=== PATIENT | male | born 1995 | race Two or more races ===

== ENCOUNTER 2016-08-10 23:29 | Emergency (ER) | payer SELFPAY ==
[2016-08-11] MEDS ORDERED: METOCLOPRAMIDE HCL ORAL SOLN 10 MG/10 ML UDCUP PO ONE (01:50)
[2016-08-11] MEDS ORDERED: LIDOCAINE 2% VISCOUS SOLN 20 ML UDCUP PO ONE (01:50)
[2016-08-11] MEDS ORDERED: MAG HYDROX/AL HYDROX/SIMETH SUSP 30 ML UDCUP PO ONE (01:50)
--- NOTE | 2016-08-11 02:10 | ER Document Report ---
ED General - General Chief Complaint: Chest Pain Stated Complaint: DISCOMFORT IN CHEST Time seen by provider: 01:50 Notes: Patient is a 21-year-old male that comes emergency department for chief complaint of pain in his lower chest and upper abdomen for a few hours, states it is worse when lying flat. Patient smokes, drinks alcohol. He states the pain makes him feel short of breath. He denies any injuries, fever, lower extremity swelling, surgeries. - Related Data Allergies/Adverse Reactions: No Known Allergies Allergy (Unverified 08/10/16 23:42) Past Medical History - General Information source: Patient - Social History Smoking Status: Current Every Day Smoker Frequency of alcohol use: Occasional Drug Abuse: None Lives with: Family Family History: Reviewed & Not Pertinent - Medical History Medical History: Negative Renal/ Medical History: Denies: Hx Peritoneal Dialysis Surgical Hx: Negative - Immunizations Immunizations up to date: Yes Hx Diphtheria, Pertussis, Tetanus Vaccination: Yes Review of Systems - Review of Systems Constitutional: No symptoms reported EENT: No symptoms reported Cardiovascular: See HPI Respiratory: See HPI Gastrointestinal: See HPI Genitourinary: No symptoms reported Male Genitourinary: No symptoms reported Musculoskeletal: No symptoms reported Skin: No symptoms reported Hematologic/Lymphatic: No symptoms reported Neurological/Psychological: No symptoms reported Physical Exam - Vital signs Vitals: Temp Pulse Resp BP Pulse Ox 98.2 F 79 18 147/91 H 98 08/10/16 23:43 08/10/16 23:43 08/10/16 23:43 08/10/16 23:43 08/10/16 23:43 Interpretation: Normal - General General appearance: Appears well, Alert In distress: None - HEENT Head: Normocephalic, Atraumatic Eyes: Normal Conjunctiva: Normal Extraocular movements intact: Yes Eyelashes: Normal Pupils: PERRL Nasal: Normal Mouth/Lips: Normal Mucous membranes: Normal Pharynx: Normal Neck: Normal - Respiratory Respiratory status: No respiratory distress Chest status: Nontender Breath sounds: Normal. No: Decreased air movement, Wheezing Chest palpation: Normal - Cardiovascular Rhythm: Regular. No: Tachycardia Heart sounds: Normal auscultation, S1 appreciated, S2 appreciated Murmur: No - Abdominal Inspection: Normal Distension: No distension Bowel sounds: Normal Tenderness: Tender - Mildly tender in the epigastric area, otherwise very benign abdomen. No: McBurney's point, Reyes's sign, Guarding Organomegaly: No organomegaly - Back Back: Normal, Nontender - Extremities General upper extremity: Normal inspection, Nontender, Normal color, Normal ROM , Normal temperature General lower extremity: Normal inspection, Nontender, Normal color, Normal ROM , Normal temperature, Normal weight bearing. No: Esperanza's sign - Neurological Neuro grossly intact: Yes Cognition: Normal Orientation: AAOx4 Alan Coma Scale Eye Opening: Spontaneous Alan Coma Scale Verbal: Oriented Alan Coma Scale Motor: Obeys Commands [place] Coma Scale Total: 15 Speech: Normal Motor strength normal: LUE, RUE, LLE, RLE Sensory: Normal - Psychological Associated symptoms: Normal affect, Normal mood - Skin Skin Temperature: Warm Skin Moisture: Dry Skin Color: Normal Course - Re-evaluation Re-evalutation: EKG sinus rhythm with no T-wave inversions in consecutive leads, ST segment changes, or concerning findings. X-ray unremarkable. CBC, chemistry, lipase are all normal. Patient was given a GI cocktail, after this his symptoms completely resolved. Discussed treatment of gastritis/esophagitis, patient will be prescribed Pepcid, follow-up with primary care, discussed return precautions. roof tile layer system used for assistance. Patient states understanding and agreement. - Vital Signs Vital signs: Temp Pulse Resp BP Pulse Ox 97.8 F 74 18 139/86 H 99 08/11/16 04:25 08/11/16 04:25 08/11/16 04:25 08/11/16 04:25 08/11/16 04:25 - Laboratory Result Diagrams: 08/11/16 02:06 08/11/16 02:06 Laboratory results interpreted by me: 08/11/16 02:06 WBC 12.7 H Discharge - Discharge Clinical Impression: Abdominal pain Qualifiers: Abdominal location: epigastric Qualified Code(s): R10.13 - Epigastric pain Chest pain Qualifiers: Chest pain type: unspecified Qualified Code(s): R07.9 - Chest pain, unspecified Condition: Stable Disposition: HOME, SELF-CARE Additional Instructions: Your x-ray, EKG, and blood tests are normal. Based on her examination and symptoms I believe this is from inflammation in your esophagus and stomach, please take the Pepcid as directed, take Tums or Rolaids additionally if needed, take Tylenol. Avoid smoking, alcohol, spicy food, high levels of caffeine, NSAIDs (ibuprofen, aspirin, naproxen, etc). Follow-up with primary care. Return to the emergency department immediately for any concerning or worsening symptoms including worsening pain, blood in your bowel movements, vomiting, etc. Prescriptions: Famotidine [Pepcid 20 mg Tablet] 20 mg PO BID #30 tablet
[2016-08-11 02:31] LABS: ABSOLUTE BASOPHILS # (AUTO) 0.1 10^3/uL (0.0-0.2); ABSOLUTE EOSINOPHILS # (AUTO) 0.4 10^3/uL (0.0-0.6); ABSOLUTE LYMPHOCYTES (AUTO) 3.3 10^3/uL (0.5-4.7); ABSOLUTE MONOCYTES (AUTO) 1.4 10^3/uL (0.1-1.4); ABSOLUTE NEUT (AUTO) 7.6 10^3/uL (1.7-8.2); BASOPHILS % (AUTO) 0.4 % (0-2); EOSINOPHILS % (AUTO) 2.9 % (0-6); HEMATOCRIT 49.8 % (37.9-51.0); HGB HCT DIFFERENCE -1.8; LYMPHOCYTES % (AUTO) 26.2 % (13-45); MEAN CORPUSCULAR HEMOGLOBIN 29.2 pg (27.0-33.4); MEAN CORPUSCULAR HGB CONC 32.1 g/dL (32.0-36.0); MEAN CORPUSCULAR VOLUME 91 fl (80-97); MONOCYTES % (AUTO) 11.1 % (3-13); RED BLOOD COUNT 5.47 10^6/uL (4.35-5.55); RED CELL DISTRIBUTION WIDTH 13.2 % (11.5-14.0); SEGMENTED NEUTROPHILS % (AUTO) 59.4 % (42-78); WHITE BLOOD COUNT 12.7 10^3/uL (4.0-10.5)
[2016-08-11 02:35] LABS: ALANINE AMINOTRANSFERASE 42 U/L (21-72); ALBUMIN 4.5 g/dL (3.5-5.0); ALKALINE PHOSPHATASE 83 U/L (38-126); ANION GAP 13 (5-19); ASPARTATE AMINO TRANSFERASE 24 U/L (17-59); BILIRUBIN,TOTAL 0.5 mg/dL (0.2-1.3); BLOOD UREA NITROGEN 11 mg/dL (7-20); CALCIUM 10.1 mg/dL (8.4-10.2); CARBON DIOXIDE 30 mmol/L (22-30); CHLORIDE 98 mmol/L (98-107); CREATININE RESULT 0.78 mg/dL (0.52-1.25); GLUCOSE 96 mg/dL (75-110); LIPASE 49.7 U/L (23-300); POTASSIUM 4.3 mmol/L (3.6-5.0); SODIUM 140.8 mmol/L (137-145); TOTAL PROTEIN 7.7 g/dL (6.3-8.2)
[2016-08-11 04:27] VITALS: BP 139/86
--- NOTE | 2016-08-11 09:24 | EKG REPORT ---
SEVERITY:- NORMAL ECG - SINUS RHYTHM : Confirmed by: Tammie Goldsmith MD 11-Aug-2016 09:23:53
== END 2016-08-11 04:30 | disposition home or self-care (01) ==
LOC: ER 23:29
DX: R07.9 Chest pain, unspecified (principal); R10.13 Epigastric pain; R10.816 Epigastric abdominal tenderness; R06.02 Shortness of breath; F17.200 Nicotine dependence, unspecified, uncomplicated
CPT/HCPCS: 93005; 99284; 36415; 83690; 85025; 80053; 71020; 93010; J3490